=== PATIENT | female | born 1980 | race Caucasian/White ===

== ENCOUNTER → 2016-07-10 | Outpatient (CLI) | payer OTHER | LOC: RAD 04:51 | DX: Z12.31 Encounter for screening mammogram for malignant neoplasm of breast (principal) ==

== ENCOUNTER → 2017-07-01 | Outpatient (CLI) | payer OTHER | LOC: RAD 09:39 | DX: Z12.31 Encounter for screening mammogram for malignant neoplasm of breast (principal) ==

== ENCOUNTER → 2018-08-31 | Outpatient (CLI) | payer OTHER | LOC: RAD 01:13 | DX: Z12.31 Encounter for screening mammogram for malignant neoplasm of breast (principal) ==

== ENCOUNTER → 2019-10-02 | Outpatient (CLI) | payer OTHER | LOC: BC 09-06 12:02 | PROVIDERS: ATTEND Internal Medicine Hematology & Oncology | DX: Z12.31 Encounter for screening mammogram for malignant neoplasm of breast (principal) ==

== ENCOUNTER → 2019-10-06 | Outpatient (CLI) | payer OTHER | LOC: BC 08:47 → ULTRA 08:47 → BC 16:20 | PROVIDERS: ATTEND Radiology Diagnostic Radiology | DX: R92.8 Other abnormal and inconclusive findings on diagnostic imaging of breast (principal); C83.32 Diffuse large B-cell lymphoma, intrathoracic lymph nodes; Z91.89 Other specified personal risk factors, not elsewhere classified ==

== ENCOUNTER → 2020-09-06 | Outpatient (CLI) | payer OTHER ==
--- NOTE | 2020-09-06 13:45 | 2DMMODE ---
[facility] [place] [address] 2 D/M-MODE ECHOCARDIOGRAM Name: GERALD RIVAS Room #: REG Riley ..#: [id number] Admission: 09/06/20 Attend Phys: Christopher Herrera Discharge: Date of : 78 Report #: [id number] THIS REPORT FOR: cc: aThir Gabriel MD, Neal A. MD Santiago, Patrick MD [facility] ~ APPROVED REPORT Study performed: 09/06/2020 12:19:09 EXAM: Comprehensive 2D, Doppler, and color-flow Echocardiogram Patient Location: Out-Patient Status: routine BSA: 1.69 HR: 98 bpm BP: 115/74 mmHg Rhythm: NSR/borderline tachy Other Information Study Quality: Good Indications Past history of cardio-toxic meds. Chemo. 2D Dimensions RVDd: 27.28 mm IVSd: 7.46 (7-11mm) LVOT Diam: 19.81 (18-24mm) LVDd: 41.17 mm PWd: 8.12 (7-11mm) Ascending Ao: 27.20 (22-36mm) LVDs: 30.89 (25-40mm) Left Atrium: 28.74 (27-40mm) Aortic Root: 28.22 mm Volumes Left Atrial Volume (Systole) Single Plane 4CH: 24.22 mL Aortic Valve AoV Peak Juan.: 1.20 m/s AO Peak Gr.: 5.74 mmHg LVOT Max P.74 mmHg LVOT Max V: 0.97 m/s SHELLY Vmax: 2.49 cm2 [facility] [address] [place] [address] 2 D/M-MODE ECHOCARDIOGRAM Name: GERALD RIVAS Alberto [id number] Admission: 09/06/20 Attend Phys: Christopher Echavarria Discharge: Date of : 78 Report #: [id number] Pulmonary Valve PV Peak Juan.: 1.10 m/s PV Peak Gr.: 4.86 mmHg Pulmonary Vein P Vein S: 0.55 m/s Tricuspid Valve RAP Estimate: 5.00 mmHg Left Ventricle The left ventricle is normal size. There is normal LV segmental wall motion. There is normal left ventricular wall thickness. Left ventricular systolic function is normal. LVEF is 55-60%. Right Ventricle The right ventricle is normal size. The right ventricular systolic function is normal. Atria The left atrium size is normal. The right atrium size is normal. Aortic Valve The aortic valve is normal in structure. No aortic regurgitation is present. There is no aortic valvular stenosis. Mitral Valve The mitral valve is normal in structure. Trace mitral regurgitation. No evidence of mitral valve stenosis. Tricuspid Valve The tricuspid valve is normal in structure. There is no tricuspid valve regurgitation noted. Unable to assess PA pressure. Pulmonic Valve The pulmonary valve is normal in structure. There is no pulmonic valvular regurgitation. Great Vessels The aortic root is normal in size. The ascending aorta is normal in size. IVC is normal in size and collapses >50% with inspiration. Pericardium There is no pericardial effusion. [facility] [address] [address] 2 D/M-MODE ECHOCARDIOGRAM Name: GERALD RIVAS Room #: REG CL [facility]#: [id number] Admission: 09/06/20 Attend Phys: Christopher Echavarria Discharge: Date of : 78 Report #: [id number] <Conclusion> Normal left ventricular size/wall thickness Ejection fraction 60% Normal right ventricular size/function Normal atrial size Color-flow Doppler study was performed of the aortic/mitral/tricuspid/pulmonary valve Normal aortic/mitral valve structure and function. Trace mitral valve insufficiency No tricuspid valve insufficiency Normal aortic root size No pericardial effusion <ELECTRONICALLY SIGNED> By: Khris Welch MD, FACC 09/06/205 44 44 Khris Welch MD, FACC /INF
== END ==
LOC: CV 12:50
PROVIDERS: ATTEND Internal Medicine Hematology & Oncology
DX: Z00.00 Encounter for general adult medical examination without abnormal findings (principal); C83.32 Diffuse large B-cell lymphoma, intrathoracic lymph nodes; Z91.89 Other specified personal risk factors, not elsewhere classified

== ENCOUNTER → 2020-10-09 | Outpatient (CLI) | payer OTHER | LOC: ULTRA 08:50 | PROVIDERS: ATTEND Internal Medicine Hematology & Oncology | DX: Z12.31 Encounter for screening mammogram for malignant neoplasm of breast (principal) ==